=== PATIENT | female | born 1960 | race Caucasian/White ===

== ENCOUNTER 2016-04-11 09:16 | Emergency (ER) | payer BC ==
[2016-04-11 09:40] LABS: Bilirubin Negative (Negative); Blood, Urine Negative (Negative); Clarity Clear (Clear); Glucose, Urine (Dipstick) Negative (Negative); Leukocyte Negative (Negative); Nitrite Negative (Negative); Protein, Urine (Dipstick) Negative (Neg-Trace); Urobilinogen 0.2 mg/dL (0.2-1.0); pH, Urine 8.5 (5.0-9.0)
[2016-04-11 10:11] LABS: #Basophils 0.1 thou/uL (0.0-0.2); #Eosinphils 0.2 thou/uL (0.0-0.7); #Lymphocytes 2.5 thou/uL (1.20-3.40); #Monocytes 0.6 thou/uL (0.11-0.59); #Neutrophils 4.1 thou/uL (1.40-6.50); %Basophils 1.4 % (0.0-1.0); %Eosinophils 2.5 % (0.0-10.0); %Monocytes 8.1 % (0.0-10.0); Hemoglobin 14.5 g/dL (12.0-16.0); Mean Corpuscular Hemoglobin 30.8 pg (27.0-31.0); Mean Corpuscular Volume 90.6 fl (81.0-99.0); Mean Platelet Volume 7.9 fL (7.4-10.4); Platelet Count 291 thou/uL (130-400); RBC Distribution Width 12.3 % (11.5-14.5); Red Blood Cell (RBC) Count 4.72 mill/uL (4.20-5.40); White Blood Cell (WBC) Count 7.5 thou/uL (4.8-10.8)
[2016-04-11 10:24] LABS: ALT (SGPT) 10 U/L (0-55); AST (SGOT) 16 U/L (5-34); Albumin 3.9 g/dL (3.5-5.0); Alkaline Phosphatase 65 U/L (40-150); Anion Gap 18 mmol/L (10-20); BUN (Urea Nitrogen) 6 mg/dL (9.8-20.1); Bilirubin, Total 0.3 mg/dL (0.2-1.2); Calc. Creatinine Clearance 0 mL/min (70-130); Calcium 9.5 mg/dL (7.8-10.44); Carbon Dioxide 26 mmol/L (22-29); Chloride 102 mmol/L (98-107); Estimated GFR-MDRD 81; Globulin 2.6 g/dL (2.4-3.5); Glucose 93 mg/dL (70-105); Potassium 4.8 mmol/L (3.5-5.1); Protein, Total 6.5 g/dL (6.0-8.3); Sodium 141 mmol/L (136-145)
--- NOTE | 2016-04-11 11:55 | ERRECORD ---
[facility] EMERGENCY RECORD HPI ABDOMINAL PAIN (09:43 SHAN) CHIEF COMPLAINTS: Patient presents for evaluation of abdominal pain, Patient presents for evaluation of more in the bladder area, started this morning. HISTORIAN: History provided by patient, History provided by patient's spouse. QUALITY: Pain is sharp in nature. SEVERITY: Maximum severity of symptoms moderate, Currently symptoms are moderate. ASSOCIATED WITH FEMALE: No associated symptoms. RELIEVED BY: Patient's condition relieved by nothing. EXACERBATED BY: Patient's condition exacerbated by nothing. ROS (09:44 SHAN) CONSTITUTIONAL: Negative constitutional review of systems, Historian denies chills, denies fever. EYES: Negative eye review of systems. ENT: Negative ears, nose, throat review of systems. CARDIOVASCULAR: Negative cardiovascular review of systems, Historian denies chest pain, denies palpitations. RESPIRATORY: Negative respiratory review of systems, Historian denies cough, denies shortness of breath. GI: Negative gastrointestinal review of systems, Historian admits abdominal pain (some diffuse but more in the lower mid abdomen/pelvis), Historian denies constipation, Historian denies diarrhea. MUSCULOSKELETAL: Negative musculoskeletal review of systems. SKIN: Negative skin review of systems. NEUROLOGIC: Negative neurologic review of systems. ENDOCRINE: Negative endocrine review of systems. HEMO/LYMPHATIC: Normal hematologic/lymphatic system review. PSYCHIATRIC: Negative psychiatric review of systems. NOTES: All other ROS is negative except as listed in HPI. PAST MEDICAL HISTORY MEDICAL HISTORY: Flu vaccine up to date, Pneumococcal vaccine not up to date, Past medical history includes pulmonary disease, chronic obstructive pulmonary disease. (09:26 SFRE) FEMALE SURGICAL HISTORY: Surgical history of hysterectomy, Surgical history of tonsillectomy. (09:26 SFRE) PSYCHIATRIC HISTORY: No previous psychiatric history. (09:26 SFRE) SOCIAL HISTORY: Patient denies alcohol use, Patient denies drug use, Patient has no smoking history. (09:26 SFRE) NOTES: I have reviewed and agree with the PMH/PSxH/FamHx/SocHx obtained by the nurse. (09:44 SHAN) KNOWN ALLERGIES &a-1R&a+25V*p+0X*h4481K*c202B*c15G*c2P*p-0X&a-25V&a+1R Name: Loreto Worthy : 1960 F56 MedRec: [id number] AcctNum: [id number] Prepared: SunApr 11, 2016 16:32 by Interface Page 1 of 3 pMD [facility] EMERGENCY RECORD codeine sulfate CURRENT MEDICATIONS No recorded medications VITAL SIGNS (09:22 SFRE) VITAL SIGNS: BP: 143/86, Pulse: 70, Resp: 18, Temp: 98.1 (Tympanic), Pain: 10 (Sharp), O2 sat: 98 on Room Air, Time: 04/11/2016 09:22. PHYSICAL EXAM (09:44 SHAN) CONSTITUTIONAL: Vital signs reviewed, Patient appears non toxic, Patient alert and oriented to person, place and time, Pt is in no apparent distress. HEAD: Head exam included findings of head atraumatic, normocephalic. EYES: Eye exam included findings of eyelids normal to inspection, Pupils equally round and reactive to light, Extraocular muscles intact. ENT: ENT exam normal, Nose exam normal, no nasal deformity, no bleeding from nares, Pharynx exam normal, Mouth exam normal, mucous membranes moist. NECK: Neck exam included findings of normal range of motion, Trachea midline. RESPIRATORY CHEST: Respiratory and chest exam normal, Breath sounds clear, No wheezing, No rales, Chest exam included findings of chest movement symmetrical, Chest expansion equal. CARDIOVASCULAR: Cardiovascular assessment normal, Cardiovascular exam included findings of heart rate regular rate and rhythm, Heart sounds normal. ABDOMEN FEMALE: Abdominal exam included findings of abdomen tenderness in the low suprapubic central area, Bowel sounds normal, no mass, no pulsatile masses, no peritoneal signs. BACK: Back exam included findings of normal inspection, range of motion normal, no costovertebral angle tenderness. UPPER EXTREMITY: Upper extremity exam included findings of inspection normal, Range of motion normal. LOWER EXTREMITY: Lower extremity exam included findings of inspection normal, Range of motion normal. NEURO: Neuro exam findings include patient oriented to person, place and time, Speech normal, no focal motor deficits, no focal sensory deficits. SKIN: Skin exam included findings of skin warm, dry, and normal in color. LYMPHATIC: Lymphatic exam normal. PSYCHIATRIC: Psychiatric exam included findings of patient oriented to person place and time, Normal affect. DOCTOR NOTES (10:27 SHAN) TEXT: Urine and labs good; abdomen seems a little less &a-1R&a+25V*p+0X*s7750W*c202B*c15G*c2P*p-0X&a-25V&a+1R Name: Loreto Worthy : 1960 F56 MedRec: [id number] AcctNum: [id number] Prepared: SunApr 11, 2016 16:32 by Interface Page 2 of 3 pMD [facility] EMERGENCY RECORD painful; no rebound. Suspect is a uti with clear urine; explained that it is difficult to be certain; but with neg wbc and crp; and abdomen with no other clear findings believe it is safe to treat this as an atypical presentation of a common problem. Patient was advised to return if there is worsening for further evaluation. Appears to understand and concurs. DATA REVIEWED: Lab data reviewed. PROBLEM LIST No recorded problems DIAGNOSIS (10:29 KARSON) FINAL: PRIMARY: DYSURIA, ADDITIONAL: UTI. PRESCRIPTION Bactrim DS: TABLET : 800 mg-160 mg : ORAL : Quantity: 1 Unit: tab(s) Route: ORAL Schedule: 2 times a day (before meals) Dispense: 20 Unit: tab(s) May substitute. Refills: No Refills . (10:30 KARSON) NOTES: No Refills. (10:30 KARSON) Pyridium: TABLET : 200 mg : ORAL : Quantity: 1 Unit: tab(s) Route: ORAL Schedule: 3 times a day Dispense: 9 Unit: tab(s) May substitute. Refills: No Refills . (10:31 KARSON) NOTES: No Refills. (10:31 KARSON) DISPOSITION PATIENT: Disposition Type: Discharge, Disposition: *Discharge Home. (10:29 KARSON) Patient left the department. (11:49 MARIANNA) Ayala: MARIANNA=RUFINO Fernández, Ester TY=MD Norris, Zachary &a-1R&a+25V*p+0X*t7225H*c202B*c15G*c2P*p-0X&a-25V&a+1R Name: Loreto Worthy : 1960 F56 MedRec: [id number] AcctNum: [id number] Prepared: Tue Apr 11, 2016 16:32 by Interface Page 3 of 3 pMD MTDD
--- NOTE | 2016-04-11 12:02 | PICIS ---
[facility] EMERGENCY RECORD TRIAGE (SunApr 11, 2016 09:24 SFRE) TRIAGE NOTES: SUPRAPUBIC PAIN, PAINFUL URINATION. (SunApr 11, 2016 09:24 SFRE) PATIENT: NAME: Loreto Worthy, AGE: 56, GENDER: female, : Sun1960, TIME OF GREET: SunApr 11, 2016 09:16, PREFERRED LANGUAGE: Beninese, ETHNICITY: Not or , ECODE BILLING MAP: [facility], SSN: [id number], Zip Code: [address], KG WEIGHT: 46.72, PHONE: , , , PERSON ID: [id number], PCP: MD Lomeli Olayemi. (SunApr 11, 2016 09:24 SFRE) COMPLAINT: STOMACH PAIN. (SunApr 11, 2016 09:24 SFRE) ADMISSION: URGENCY: 3 Urgent, ADMISSION SOURCE: Home, TRANSPORT: Walk-in, BED: ED -03. (SunApr 11, 2016 09:24 SFRE) ASSESSMENT: Assessment: holding on to abd dramatically moaning and groaning in pain, Symptoms began 04/11/2016 0430. (09:43 SFRE) PAIN: Patient complains of pain described as, sharp, shooting, on a scale 0-10 patient rates pain as 10, Location suprapubic radiating to upper abd, Pain is constant, Onset was 0430. (09:44 SFRE) IMMUNIZATIONS: Flu vaccine up to date. (09:26 SFRE) SIRS SCORING: Heart Rate 55-109 (0), Temp range 96.8-101.1 (0), respiratory rate 12-24 (0), Mental Status altered: no (0). (09:26 SFRE) TRIAGE SCREENING: Patient denies suicidal ideation, Patient denies presence of domestic violence. (09:44 SFRE) PROVIDERS: TRIAGE NURSE: Ester Fernández RN. (SunApr 11, 2016 09:24 SFRE) VITAL SIGNS: BP 143/86, Pulse 70, Resp 18, Temp 98.1, (Tympanic), Pain 10, (Sharp), O2 Sat 98, on Room Air, Time 04/11/2016 09:22. (09:22 SFRE) KNOWN ALLERGIES codeine sulfate CURRENT MEDICATIONS No recorded medications VITAL SIGNS (09: SFRE) VITAL SIGNS: BP: 143/86, Pulse: 70, Resp: 18, Temp: 98.1 (Tympanic), Pain: 10 (Sharp), O2 sat: 98 on Room Air, Time: 04/11/2016 09:22. NURSING ASSESSMENT: GENITOURINARY (09:29 SFRE) CONSTITUTIONAL: Patient arrives ambulatory, Gait steady, History obtained from patient, Patient appears, in distress due to pain, Patient cooperative, Patient alert, Oriented to person, place and time, Skin warm, Skin dry, Skin normal in color, Mucous membranes pink, Mucous membranes moist, Patient is well-groomed, Patient complains of abd pain. &a-1R&a+25V*p+0X*u9990M*c202B*c15G*c2P*p-0X&a-25V&a+1R Name: Loreto Worthy : 1960 F56 MedRec: [id number] AcctNum: [id number] Prepared: reynaldo Apr 11, 2016 16:38 by Interface Page [address] [facility] EMERGENCY RECORD PAIN FEMALE: Pain exacerbated by, urination, Nothing has been tried to alleviate the pain, sharp pain, shooting pain, to the suprapubic region, constant, on a scale 0-10 patient rates pain as 10. GENITOURINARY FEMALE: Associated with urinary complaints, burning, dysuria. ABDOMEN: Abdomen assessment findings include abdomen symmetrical, Abdomen soft, tender, suprapubic, Bowel sound normal, no associated nausea, no associated vomiting, no associated diarrhea, no associated constipation. SAFETY: Side rails up, Cart/Stretcher in lowest position, Family at bedside, Call light within reach, Hospital ID band on. NURSING PROCEDURE: DISCHARGE NOTE (: SFRE) DISCHARGE: Patient discharged to home, ambulating without assistance, family driving, accompanied by //partner, Summary of Care printed/ provided, Patient requested and was provided an electronic copy of Discharge Instructions, Discharge instructions given to patient, Simple or moderate discharge teaching performed, by RUFINO ALEXANDRA, F/U WITH PCP. RX DIRECTED. RETURN TO ED NEEDED FOR NEW/CONCERNING OR WORSENING SYMPTOMS., Prescriptions given and instructions on side effects given, Name of prescription(s) given: BACTRIM, PYRIDIUM, Above person(s) verbalized understanding of discharge instructions and follow-up care. ORDER DETAILS Order Name: CBC with Differential, Status: Active, Time: 09:42 04/11/2016, User: KARSON, - Ordered for: MD Pisano Stanley, - Entered by: MD Pisano Stanley - Tue Apr 11, 2016 09:42, - Quantity: 1, Order Name: Comprehensive Metabolic Panel, Status: Active, Time: 09:42 04/11/2016, User: KARSON, - Ordered for: MD Pisano Stanley, - Entered by: MD Pisano Stanley - Tue Apr 11, 2016 09:42, - Quantity: 1, Order Name: CRP (Inflamatory), Status: Active, Time: 09:47 04/11/2016, User: KARSON, - Ordered for: MD Pisano Stanley, - Entered by: MD Pisano Stanley - Tue Apr 11, 2016 09:47, - Quantity: 1, Order Name: Culture, Urine, Status: Active, Time: 09:31 04/11/2016, User: KARSON, - Ordered for: MD Pisano Stanley, - Entered by: MD Pisano Stanley - Tue Apr 11, 2016 09:31, - Quantity: 1, Order Name: Urinalysis w/ Rflx Microscopic, Status: Active, Time: 09:31 04/11/2016, User: KARSON, &a-1R&a+25V*p+0X*l4075K*c202B*c15G*c2P*p-0X&a-25V&a+1R Name: Loreto Worthy : 1960 F56 MedRec: [id number] AcctNum: [id number] Prepared: SunApr 11, 2016 16:38 by Interface Page [address] [facility] EMERGENCY RECORD - Ordered for: MD Pisano Stanley, - Entered by: MD Pisano Stanley - Tue Apr 11, 2016 09:31, - Quantity: 1. HPI ABDOMINAL PAIN (09:43 SHAN) CHIEF COMPLAINTS: Patient presents for evaluation of abdominal pain, Patient presents for evaluation of more in the bladder area, started this morning. HISTORIAN: History provided by patient, History provided by patient's spouse. QUALITY: Pain is sharp in nature. SEVERITY: Maximum severity of symptoms moderate, Currently symptoms are moderate. ASSOCIATED WITH FEMALE: No associated symptoms. RELIEVED BY: Patient's condition relieved by nothing. EXACERBATED BY: Patient's condition exacerbated by nothing. ROS (09:44 SHAN) CONSTITUTIONAL: Negative constitutional review of systems, Historian denies chills, denies fever. EYES: Negative eye review of systems. ENT: Negative ears, nose, throat review of systems. CARDIOVASCULAR: Negative cardiovascular review of systems, Historian denies chest pain, denies palpitations. RESPIRATORY: Negative respiratory review of systems, Historian denies cough, denies shortness of breath. GI: Negative gastrointestinal review of systems, Historian admits abdominal pain (some diffuse but more in the lower mid abdomen/pelvis), Historian denies constipation, Historian denies diarrhea. MUSCULOSKELETAL: Negative musculoskeletal review of systems. SKIN: Negative skin review of systems. NEUROLOGIC: Negative neurologic review of systems. ENDOCRINE: Negative endocrine review of systems. HEMO/LYMPHATIC: Normal hematologic/lymphatic system review. PSYCHIATRIC: Negative psychiatric review of systems. NOTES: All other ROS is negative except as listed in HPI. PAST MEDICAL HISTORY MEDICAL HISTORY: Flu vaccine up to date, Pneumococcal vaccine not up to date, Past medical history includes pulmonary disease, chronic obstructive pulmonary disease. (09:26 SFRE) FEMALE SURGICAL HISTORY: Surgical history of hysterectomy, Surgical history of tonsillectomy. (09:26 SFRE) PSYCHIATRIC HISTORY: No previous psychiatric history. (09:26 SFRE) SOCIAL HISTORY: Patient denies alcohol use, Patient denies drug use, Patient has no smoking history. (09:26 SFRE) &a-1R&a+25V*p+0X*o9263H*c202B*c15G*c2P*p-0X&a-25V&a+1R Name: Loreto Worthy : 1960 F56 MedRec: [id number] AcctNum: [id number] Prepared: Dillon Apr 11, 2016 16:38 by Interface Page [address] [facility] EMERGENCY RECORD NOTES: I have reviewed and agree with the PMH/PSxH/FamHx/SocHx obtained by the nurse. (09:44 SHAN) PHYSICAL EXAM (09:44 SHAN) CONSTITUTIONAL: Vital signs reviewed, Patient appears non toxic, Patient alert and oriented to person, place and time, Pt is in no apparent distress. HEAD: Head exam included findings of head atraumatic, normocephalic. EYES: Eye exam included findings of eyelids normal to inspection, Pupils equally round and reactive to light, Extraocular muscles intact. ENT: ENT exam normal, Nose exam normal, no nasal deformity, no bleeding from nares, Pharynx exam normal, Mouth exam normal, mucous membranes moist. NECK: Neck exam included findings of normal range of motion, Trachea midline. RESPIRATORY CHEST: Respiratory and chest exam normal, Breath sounds clear, No wheezing, No rales, Chest exam included findings of chest movement symmetrical, Chest expansion equal. CARDIOVASCULAR: Cardiovascular assessment normal, Cardiovascular exam included findings of heart rate regular rate and rhythm, Heart sounds normal. ABDOMEN FEMALE: Abdominal exam included findings of abdomen tenderness in the low suprapubic central area, Bowel sounds normal, no mass, no pulsatile masses, no peritoneal signs. BACK: Back exam included findings of normal inspection, range of motion normal, no costovertebral angle tenderness. UPPER EXTREMITY: Upper extremity exam included findings of inspection normal, Range of motion normal. LOWER EXTREMITY: Lower extremity exam included findings of inspection normal, Range of motion normal. NEURO: Neuro exam findings include patient oriented to person, place and time, Speech normal, no focal motor deficits, no focal sensory deficits. SKIN: Skin exam included findings of skin warm, dry, and normal in color. LYMPHATIC: Lymphatic exam normal. PSYCHIATRIC: Psychiatric exam included findings of patient oriented to person place and time, Normal affect. EVENTS TRANSFER: Triage to Emergency Main ED -03. (SunApr 11, 2016 09:24 SFRE) Emergency Main ED -03 to Holding. (11:38 SFRE) Removed from Emergency Holding. (11:49 SFRE) DOCTOR NOTES (10:27 SHAN) TEXT: Urine and labs good; abdomen seems a little less painful; no rebound. Suspect is a uti with clear urine; explained &a-1R&a+25V*p+0X*s8611U*c202B*c15G*c2P*p-0X&a-25V&a+1R Name: Loreto Worthy : 1960 F56 MedRec: [id number] AcctNum: [id number] Prepared: Dillon Apr 11, 2016 16:38 by Interface Page [address] [facility] EMERGENCY RECORD that it is difficult to be certain; but with neg wbc and crp; and abdomen with no other clear findings believe it is safe to treat this as an atypical presentation of a common problem. Patient was advised to return if there is worsening for further evaluation. Appears to understand and concurs. DATA REVIEWED: Lab data reviewed. PROBLEM LIST No recorded problems DIAGNOSIS (: SHAN) FINAL: PRIMARY: DYSURIA, ADDITIONAL: UTI. DISPOSITION PATIENT: Disposition Type: Discharge, Disposition: *Discharge Home. (: SHAN) Patient left the department. (11:49 SFRE) INSTRUCTION (:33 SHAN) DISCHARGE: URINARY TRACT INFECTION CYSTITIS FEMALE ADULT, ABDOMINAL PAIN, UNKNOWN CAUSE, (FEMALE). FOLLOWUP: [facility], [address] [place] [address], . SPECIAL: 1. antibiotic two at first and one twice a day until gone 2. take the pyridium to numb up the urine; three times a day for 3 days; it usually will turn the urine orange 3. drink extra fluids 4. return if any problems 5. understand that the history and exam are most compatible with a urinary infection but the labs were not typical; if symptoms worsen; further evaluation will be needed. PRESCRIPTION Bactrim DS: TABLET : 800 mg-160 mg : ORAL : Quantity: 1 Unit: tab(s) Route: ORAL Schedule: 2 times a day (before meals) Dispense: 20 Unit: tab(s) May substitute. Refills: No Refills . (10:30 SHAN) NOTES: No Refills. (10:30 SHAN) Pyridium: TABLET : 200 mg : ORAL : Quantity: 1 Unit: tab(s) Route: ORAL Schedule: 3 times a day Dispense: 9 Unit: tab(s) May substitute. Refills: No Refills . (10:31 SHAN) NOTES: No Refills. (10:31 SHAN) IMAGING *DISCHARGE INSTRUCTIONS RECEIPT: Image captured from scanner. (12:59 SFRE) Page 2 added. Image captured from scanner. (12:59 SFRE) *SUPPLY CHARGE SHEET: Image captured from scanner. (13:00 SFRE) &a-1R&a+25V*p+0X*u8889V*c202B*c15G*c2P*p-0X&a-25V&a+1R Name: Loreto Worthy : 1960 F56 MedRec: [id number] AcctNum: [id number] Prepared: SunApr 11, 2016 16:38 by Interface Page [address] [facility] EMERGENCY RECORD ADMIN (16:27 SHAN) DIGITAL SIGNATURE: MD Pisano Stanley. RESULTS LABORATORY: Urinalysis w/ Rflx Microscopic Collection DT: SunApr 11, 2016 09:39, Color Yellow , Range (Yellow), Clarity Clear , Range (Clear), Specific [place], Urine 1.020 , Range (1.005-1.030), pH, Urine 8.5 , Range (5.0-9.0), Leukocyte Negative , Range (Negative), Nitrite Negative , Range (Negative), Protein, Urine (Dipstick) Negative mg/dL, Range (Neg-Trace), Glucose, Urine (Dipstick) Negative mg/dL, Range (Negative), Ketone, Urine Negative mg/dL, Range (Negative), Urobilinogen 0.2 mg/dL, Range (0.2-1.0), Bilirubin Negative , Range (Negative), Blood, Urine Negative , Range (Negative). (09:46 SHAN) CRP (Inflammatory) Collection DT: SunApr 11, 2016 10:01, CRP (Inflammatory) Less than 0.50 mg/dL, Range (= or < 0.5). (10:25 SHAN) CBC with Differential Collection DT: SunApr 11, 2016 10:01, White Blood Cell (WBC) Count 7.5 thou/uL, Range (4.8-10.8), Red Blood Cell (RBC) Count 4.72 mill/uL, Range (4.20-5.40), Hemoglobin 14.5 g/dL, Range (12.0-16.0), Hematocrit 42.7 %, Range (36.0-47.0), Mean Corpuscular Volume 90.6 fl, Range (81.0-99.0), Mean Corpuscular Hemoglobin 30.8 pg, Range (27.0-31.0), Mean Corpuscular HGB CONC 34.0 g/dL, Range (32.0-36.0), RBC Distribution Width 12.3 %, Range (11.5-14.5), Platelet Count 291 thou/uL, Range (130-400), Mean Platelet Volume 7.9 fL, Range (7.4-10.4), %Neutrophils 55.0 %, Range (42.0-75.0), %Lymphocytes 33.0 %, Range (21.0-51.0), %Monocytes 8.1 %, Range (0.0-10.0), %Eosinophils 2.5 %, Range (0.0-10.0), *%Basophils 1.4 - H %, Range (0.0-1.0), #Neutrophils 4.1 thou/uL, Range (1.40-6.50), #Lymphocytes 2.5 thou/uL, Range (1.20-3.40), *#Monocytes 0.6 - H thou/uL, Range (0.11-0.59), #Eosinphils 0.2 thou/uL, Range (0.0-0.7), #Basophils 0.1 thou/uL, Range (0.0-0.2). (10:25 SHAN) Comprehensive Metabolic Panel Collection DT: SunApr 11, 2016 10:01, Sodium 141 mmol/L, Range (136-145), Potassium 4.8 mmol/L, Range (3.5-5.1), Chloride 102 mmol/L, Range (98-107), Carbon Dioxide 26 mmol/L, Range (22-29), Anion Gap 18 mmol/L, Range (10-20), *BUN (Urea Nitrogen) 6 - L mg/dL, Range (9.8-20.1), &a-1R&a+25V*p+0X*p7657R*c202B*c15G*c2P*p-0X&a-25V&a+1R Name: Loreto Worthy : 1960 F56 MedRec: [id number] AcctNum: [id number] Prepared: SunApr 11, 2016 16:38 by Interface Page [address] [facility] EMERGENCY RECORD Creatinine 0.74 mg/dL, Range (0.6-1.1), Estimated GFR-MDRD 81 , Reference Range for Estimated GFR: Greater than 90, mL/min/1.73 m2 NOTE: The MDRD equation has not been validated for use, with the elderly (over 70 years of age), women, patients with, serious comorbid condition or persons with extremes of body size, muscle, mass, or nutritional status. , Glucose 93 mg/dL, Range (70-105), Calcium 9.5 mg/dL, Range (7.8-10.44), Bilirubin, Total 0.3 mg/dL, Range (0.2-1.2), Protein, Total 6.5 g/dL, Range (6.0-8.3), NOTE: Plasma values are generally 0.3 to 0.5 g/dL higher than serum values, due to the presence of fibrinogen. , Albumin 3.9 g/dL, Range (3.5-5.0), Globulin 2.6 g/dL, Range (2.4-3.5), Alb/Glob Ratio 1.5 g/dL, Range (1.2-2.2), Alkaline Phosphatase 65 U/L, Range (40-150), AST (SGOT) 16 U/L, Range (5-34), ALT (SGPT) 10 U/L, Range (0-55). (10:30 SFRE) Ayala: MARIANNA=RUFINO Fernández, Ester TY=MD Norris, Zachary &a-1R&a+25V*p+0X*b3604E*c202B*c15G*c2P*p-0X&a-25V&a+1R Name: Loreto Worthy DOB: 1960 F56 MedRec: [id number] AcctNum: [id number] Prepared: SunApr 11, 2016 16:38 by Interface Page 7 of 7 pMD MTDD
== END 2016-04-11 11:17 | disposition home or self-care (01) ==
LOC: MADERS 09:16
DX: N39.0 Urinary tract infection, site not specified (principal); J44.9 Chronic obstructive pulmonary disease, unspecified
CPT/HCPCS: 36415; 80053; 81003; 85025; 86140; 87086; 99284

== ENCOUNTER 2018-03-19 08:58 | Emergency (ER) | payer BC ==
[2018-03-19] MEDS ORDERED: Azithromycin 250 MG TAB ONE (09:37)
[2018-03-19 09:42] LABS: #Eosinphils 0.2 thou/uL (0.0-0.7); #Lymphocytes 1.6 thou/uL (1.20-3.40); #Monocytes 0.4 thou/uL (0.11-0.59); %Basophils 0.3 % (0.0-1.0); %Eosinophils 2.1 % (0.0-10.0); %Lymphocytes 19.5 % (21.0-51.0); %Neutrophils 73.1 % (42.0-75.0); Hemoglobin 14.9 g/dL (12.0-16.0); Mean Corpuscular HGB CONC 32.4 g/dL (32.0-36.0); Mean Corpuscular Volume 92.5 fL (78.0-98.0); Mean Platelet Volume 8.3 fL (7.4-10.4); Platelet Count 246 thou/uL (130-400); RBC Distribution Width 12.9 % (11.5-14.5); Red Blood Cell (RBC) Count 4.97 mill/uL (4.20-5.40); White Blood Cell (WBC) Count 8.2 thou/uL (4.8-10.8)
[2018-03-19] MEDS ORDERED: Ipratropium Bromide 2.5 ml Neb ONE (09:47)
[2018-03-19] MEDS ORDERED: Albuterol Sulfate 2.5 mg/0.5 ml Neb ONE (09:47)
--- NOTE | 2018-03-19 09:52 | RAD ---
PORTABLE CHEST 1 VIEW: Date: 03/19/18 Time: 0930 hours HISTORY: Dyspnea. FINDINGS: The heart size is normal. The lungs are expanded without focal areas of consolidation, pneumothorax, or pleural effusions. Scattered tiny radiopaque densities likely due to old granulomatous disease are stable since 01/06/15. IMPRESSION: No acute process. POS: [facility]
[2018-03-19 10:10] LABS: ALT (SGPT) 8 U/L (8-55); AST (SGOT) 15 U/L (5-34); Albumin 3.8 g/dL (3.5-5.0); Alkaline Phosphatase 86 U/L (40-150); Anion Gap 14 mmol/L (10-20); BUN (Urea Nitrogen) 7 mg/dL (9.8-20.1); Bilirubin, Total 0.2 mg/dL (0.2-1.2); Calc. Creatinine Clearance 0 mL/min (70-130); Calcium 8.9 mg/dL (7.8-10.44); Carbon Dioxide 23 mmol/L (22-29); Chloride 107 mmol/L (98-107); Estimated GFR-MDRD 87; Globulin 3.2 g/dL (2.4-3.5); Glucose 114 mg/dL (70-105); Potassium 4.1 mmol/L (3.5-5.1); Sodium 140 mmol/L (136-145)
== END 2018-03-19 12:50 | disposition short-term general hospital (02) ==
LOC: MADERS 08:58
DX: J44.1 Chronic obstructive pulmonary disease with (acute) exacerbation (principal); F17.210 Nicotine dependence, cigarettes, uncomplicated; Z79.899 Other long term (current) drug therapy; Z79.82 Long term (current) use of aspirin; Z79.51 Long term (current) use of inhaled steroids
CPT/HCPCS: 36415; 71045; 80053; 83880; 84484; 85025; 93005; J7611

== ENCOUNTER 2020-07-02 09:29 | Outpatient (CLI) | payer BC ==
[2020-07-02 12:58] LABS: #Basophils 0.1 thou/uL (0.0-0.2); #Eosinphils 0.2 thou/uL (0.0-0.7); #Lymphocytes 2.5 thou/uL (1.20-3.40); #Monocytes 0.7 thou/uL (0.11-0.59); #Neutrophils 6.4 thou/uL (1.40-6.50); %Basophils 0.9 % (0.0-1.0); %Eosinophils 2.4 % (0.0-10.0); %Lymphocytes 24.7 % (21.0-51.0); %Monocytes 7.3 % (0.0-10.0); %Neutrophils 64.7 % (42.0-75.0); Hemoglobin 14.5 g/dL (12.0-16.0); Mean Corpuscular HGB CONC 30.2 g/dL (32.0-36.0); Mean Corpuscular Hemoglobin 28.8 pg (27.0-31.0); Mean Corpuscular Volume 95.3 fL (78.0-98.0); Mean Platelet Volume 7.2 fL (7.4-10.4); Platelet Count 312 thou/uL (130-400); RBC Distribution Width 13.6 % (11.5-14.5); Red Blood Cell (RBC) Count 5.03 mill/uL (4.20-5.40); White Blood Cell (WBC) Count 9.9 thou/uL (4.8-10.8)
[2020-07-02 13:11] LABS: ALT (SGPT) 10 U/L (8-55); AST (SGOT) 19 U/L (5-34); Albumin 4.1 g/dL (3.4-4.8); Alkaline Phosphatase 65 U/L (40-110); Anion Gap 17 mmol/L (10-20); BUN (Urea Nitrogen) 14 mg/dL (9.8-20.1); Bilirubin, Total 0.3 mg/dL (0.2-1.2); Calc. Creatinine Clearance 0 mL/min (70-130); Calcium 9.7 mg/dL (7.8-10.44); Carbon Dioxide 25 mmol/L (23-31); Cardiac Risk 5.1 (Less than 4.5); Chloride 103 mmol/L (98-107); Cholesterol 246 mg/dl (< 200 Desired); Globulin 2.7 g/dL (2.4-3.5); Glucose 90 mg/dL (80-115); HDL Cholesterol 48 mg/dL (>60 Neg Risk); LDL Cholesterol, Calculated 180 mg/dL; Potassium 4.9 mmol/L (3.5-5.1); Protein, Total 6.8 g/dL (5.8-8.1); Sodium 140 mmol/L (136-145); Triglycerides 92 mg/dL (Less than 150)
[2020-07-02 13:55] LABS: Thyroid Stimulating Hormone 0.4317 uIU/mL (0.35-4.94)
[2020-07-02 16:58] LABS: Hemoglobin A1c 5.4 % (4.0-6.0)
[2020-07-02 17:20] LABS: Vitamin D, 25 Hydroxy 45.6 ng/ml (> 30.0)
== END 2020-07-02 09:30 | disposition home or self-care (01) ==
LOC: MADRAD 09:29
PROVIDERS: ATTEND Family Medicine
DX: J44.9 Chronic obstructive pulmonary disease, unspecified (principal); F17.200 Nicotine dependence, unspecified, uncomplicated; M54.5 Low back pain; M47.816 Spondylosis without myelopathy or radiculopathy, lumbar region
CPT/HCPCS: 36415; 71046; 72100; 80053; 80061; 82306; 83036; 84443; 85025

== ENCOUNTER 2020-08-10 06:10 | Emergency (ER) | payer OTHER ==
[2020-08-10 06:53] LABS: Bilirubin Negative (Negative); Blood, Urine Negative (Negative); Clarity Clear (Clear); Glucose, Urine (Dipstick) Negative (Negative); Ketone, Urine Negative (Negative); Leukocyte Negative (Negative); Nitrite Negative (Negative); Protein, Urine (Dipstick) Negative (Neg-Trace); Specific Gravity, Urine 1.015 (1.005-1.030); Urobilinogen 0.2 mg/dL (Less than 2); pH, Urine 5.5 (5.0-9.0)
[2020-08-10 07:01] LABS: Hemoglobin 14.1 g/dL (12.0-16.0); Mean Corpuscular HGB CONC 31.1 g/dL (32.0-36.0); Mean Corpuscular Hemoglobin 28.8 pg (27.0-31.0); Mean Corpuscular Volume 92.9 fL (78.0-98.0); Mean Platelet Volume 8.6 fL (7.4-10.4); Platelet Count 316 thou/uL (130-400); RBC Distribution Width 13.9 % (11.5-14.5); Red Blood Cell (RBC) Count 4.88 mill/uL (4.20-5.40); White Blood Cell (WBC) Count 20.4 thou/uL (4.8-10.8)
[2020-08-10 07:02] LABS: ALT (SGPT) 15 U/L (8-55); AST (SGOT) 17 U/L (5-34); Albumin 3.9 g/dL (3.4-4.8); Alkaline Phosphatase 56 U/L (40-110); Amphetamine Not Detected (NotDetected); Anion Gap 15 mmol/L (10-20); BUN (Urea Nitrogen) 19 mg/dL (9.8-20.1); Barbiturates Screen Detected (NotDetected); Benzodiazepine Screen Not Detected (NotDetected); Bilirubin, Total 0.2 mg/dL (0.2-1.2); CK (CPK) 64 U/L (29-168); Calc. Creatinine Clearance 0 mL/min (70-130); Calcium 9.3 mg/dL (7.8-10.44); Carbon Dioxide 23 mmol/L (23-31); Chloride 107 mmol/L (98-107); Cocaine Metabolite Screen Not Detected (NotDetected); Glucose 90 mg/dL (80-115); Methadone Not Detected (NotDetected); Methamphetamine Not Detected (NotDetected); Opiate Screen Not Detected (NotDetected); Oxycodone Screen Not Detected (NotDetected); Phencyclidine (PCP) Not Detected (NotDetected); Potassium 3.9 mmol/L (3.5-5.1); Protein, Total 6.9 g/dL (5.8-8.1); Sodium 141 mmol/L (136-145); THC/Cannabinoid Screen Not Detected (NotDetected); Tricyclic Screen Not Detected (NotDetected)
[2020-08-10 07:03] LABS: Medtox Control Line Valid? VALID (VALID)
[2020-08-10 07:05] LABS: CKMB 2.2 ng/mL (0-6.6)
[2020-08-10 07:12] LABS: Band 1 % (5-11); Lymphocytes 19 % (21-51); MDiff Complete? YES; Manual Diff?? YES; Monocytes 10 % (0-10); Neutrophil 70 % (42-75)
[2020-08-10 07:13] LABS: Anisocytosis SLIGHT = 6-15 cells (100X) (0-5/hpf); Platelet Morphology Comment Appears Adequate
== END 2020-08-10 08:00 | disposition home or self-care (01) ==
LOC: MADERS 06:10
DX: R07.89 Other chest pain (principal); F41.9 Anxiety disorder, unspecified; R00.0 Tachycardia, unspecified; J44.9 Chronic obstructive pulmonary disease, unspecified; Z85.3 Personal history of malignant neoplasm of breast; F17.210 Nicotine dependence, cigarettes, uncomplicated; Z79.82 Long term (current) use of aspirin; Z79.899 Other long term (current) drug therapy
CPT/HCPCS: 71045; 80053; 80306; 81003; 82550; 82553; 83605; 83880; 84484; 85025; 85379; 87040; 93005; 94760

== ENCOUNTER 2021-06-16 15:08 | Outpatient (CLI) | payer OTHER | END 2021-06-16 15:09 | disposition home or self-care (01) | LOC: MADRAD 15:08 | PROVIDERS: ATTEND Family Medicine | DX: J44.9 Chronic obstructive pulmonary disease, unspecified (principal); R05.9 Cough, unspecified; J98.4 Other disorders of lung | CPT/HCPCS: 71046 ==

== ENCOUNTER 2022-11-21 03:26 | Emergency (ER) | payer OTHER ==
[2022-11-21] MEDS ORDERED: Magnesium 2 GM/50 ML BAG (IN WATER) ONE (03:31)
[2022-11-21] MEDS ORDERED: Albuterol 2.5 MG/0.5 ML NEB ONE (03:31)
[2022-11-21 04:37] LABS: Band 2 % (5-11); Burr Cells SLIGHT = 2-5 cells (100X) (0-1/hpf); Hematocrit 42.6 % (36.0-47.0); Hemoglobin 13.5 g/dL (12.0-16.0); Lymphocytes 14 % (21-51); MDiff Complete? YES; Mean Corpuscular HGB CONC 31.8 g/dL (32.0-36.0); Mean Corpuscular Hemoglobin 29.6 pg (27.0-31.0); Mean Corpuscular Volume 93.1 fl (78.0-98.0); Mean Platelet Volume 8.7 fL (7.4-10.4); Monocytes 1 % (0-10); Neutrophil 83 % (42-75); Platelet Adequacy Comment Appears Adequate; Platelet Count 311 10x3/uL (130-400); RBC Distribution Width 13.3 % (11.5-14.5); Red Blood Cell (RBC) Count 4.58 mill/uL (4.20-5.40); White Blood Cell (WBC) Count 21.6 10x3/uL (4.8-10.8)
[2022-11-21 04:39] LABS: ALT (SGPT) 13 U/L (8-55); AST (SGOT) 21 U/L (5-34); Albumin 3.5 g/dL (3.4-4.8); Alkaline Phosphatase 101 U/L (40-110); Anion Gap 18 mmol/L (10-20); BUN (Urea Nitrogen) 14 mg/dL (9.8-20.1); Bilirubin, Total 0.5 mg/dL (0.2-1.2); Calc. Creatinine Clearance 0 mL/min (70-130); Calcium 8.3 mg/dL (7.8-10.44); Carbon Dioxide 20 mmol/L (23-31); Chloride 108 mmol/L (98-107); Estimated GFR 101; Globulin 2.8 g/dL (2.4-3.5); Glucose 174 mg/dL (80-115); Potassium 3.4 mmol/L (3.5-5.1); Protein, Total 6.3 g/dL (5.8-8.1); Sodium 143 mmol/L (136-145)
[2022-11-21 04:44] LABS: Troponin I 0.113 ng/mL (< 0.028)
[2022-11-21] MEDS ORDERED: Aspirin 300 MG Suppository ONE (04:47)
[2022-11-21] MEDS ORDERED: Acetaminophen 650 MG Suppository ONE (04:47)
[2022-11-21] MEDS ORDERED: Acetaminophen 500 MG TAB ONE (05:10)
[2022-11-21] MEDS ORDERED: Aspirin Chewable 81 MG TAB ONE (05:10)
[2022-11-21] MEDS ORDERED: Azithromycin 500 MG VIAL ONE (05:13)
[2022-11-21] MEDS ORDERED: Sodium Chloride 0.9% 250 ML 250 ML ONE (05:13)
[2022-11-21] MEDS ORDERED: cefTRIAXone (ROCEPHIN) 1 GM VIAL ONE (05:13)
[2022-11-21] MEDS ORDERED: Sodium Chloride 0.9% 100 ML ONE (05:13)
[2022-11-21 05:26] LABS: SARS-CoV-2 NAA Rapid Test Not Detected (NotDetected)
== END 2022-11-21 06:33 | disposition short-term general hospital (02) ==
LOC: MADERS 03:26
DX: J44.1 Chronic obstructive pulmonary disease with (acute) exacerbation (principal); J96.00 Acute respiratory failure, unspecified whether with hypoxia or hypercapnia; R79.89 Other specified abnormal findings of blood chemistry; F17.210 Nicotine dependence, cigarettes, uncomplicated; Z79.82 Long term (current) use of aspirin; Z20.822 Contact with and (suspected) exposure to COVID-19
CPT/HCPCS: 80053; 83880; 84484; 85025; 93005; 94644; 96365; 96367; 96372; J0456; J0696; J1650; J3475; J3490; J7050; J7611

== ENCOUNTER 2023-04-17 07:27 | Emergency (ER) | payer MEDICARE ==
[2023-04-17] MEDS ORDERED: Albuterol 2.5 MG (0.5 mL) NEB ONE (07:51)
[2023-04-17] MEDS ORDERED: Aspirin Chewable 81 MG TAB ONE (07:51)
[2023-04-17] MEDS ORDERED: cefTRIAXone (ROCEPHIN) 1 GM VIAL ONE (07:51)
[2023-04-17] MEDS ORDERED: Ipratropium Bromide 2.5 ml Neb ONE (07:51)
[2023-04-17] MEDS ORDERED: Azithromycin 500 MG VIAL ONE (07:51)
[2023-04-17 08:07] LABS: #Basophils 0.1 thou/uL (0.0-0.2); #Eosinphils 0.2 thou/uL (0.0-0.7); #Lymphocytes 1.4 thou/uL (1.20-3.40); #Monocytes 0.8 thou/uL (0.11-0.59); #Neutrophils 11.2 thou/uL (1.40-6.50); %Basophils 0.7 % (0.0-1.0); %Eosinophils 1.2 % (0.0-10.0); %Lymphocytes 10.1 % (21.0-51.0); %Monocytes 5.8 % (0.0-10.0); %Neutrophils 82.2 % (42.0-75.0); Hematocrit 42.7 % (36.0-47.0); Hemoglobin 13.4 g/dL (12.0-16.0); Mean Corpuscular HGB CONC 31.5 g/dL (32.0-36.0); Mean Corpuscular Hemoglobin 29.3 pg (27.0-31.0); Mean Platelet Volume 8.5 fL (7.4-10.4); Platelet Count 283 10x3/uL (130-400); Red Blood Cell (RBC) Count 4.59 mill/uL (4.20-5.40); White Blood Cell (WBC) Count 13.6 10x3/uL (4.8-10.8)
[2023-04-17] MEDS ORDERED: methylPREDNISolone Sod Succ/PF 125 MG/2 ML VIAL ONE (08:10)
[2023-04-17 08:20] LABS: ALT (SGPT) 14 U/L (8-55); AST (SGOT) 22 U/L (5-34); Alkaline Phosphatase 53 U/L (40-110); Anion Gap 15 mmol/L (10-20); BUN (Urea Nitrogen) 14 mg/dL (9.8-20.1); Bilirubin, Total 0.3 mg/dL (0.2-1.2); Calc. Creatinine Clearance 0 mL/min (70-130); Chloride 105 mmol/L (98-107); Estimated GFR 99; Globulin 2.5 g/dL (2.4-3.5); Glucose 89 mg/dL (80-115); Magnesium 1.8 mg/dL (1.6-2.6); Protein, Total 6.5 g/dL (5.8-8.1); Sodium 141 mmol/L (136-145)
[2023-04-17 08:28] LABS: Base Excess-Venous -0.4 mmol/L (-2.0 to 3.0); Bicarbonate (HCO3v) 27.1 mmol/L (22.0-28.0); CO2 Tension (PvCO2) 54.8 mmHg (42.0-51.0); Calcium, Ionized 1.15 mmol/L (1.15-1.33); Chloride 106 mmol/L (98-107); Hemoglobin - Calc 14.6 g/dL (12.0-16.0); Potassium 3.9 mmol/L (3.5-5.1); Sodium 141 mmol/L (138-145); T. Carbon Dioxide 28.8 mmol/L (22.0-28.0); vO2 Saturation-calc 75.3 % (60.0-85.0)
[2023-04-17 08:29] LABS: Carbon Dioxide 25 mmol/L (23-31); Critical Call Chem Troponin I NUR.AW2@0825; Troponin I 0.546 ng/mL (< 0.028)
[2023-04-17 08:50] LABS: SARS-CoV-2 NAA Rapid Test Not Detected (NotDetected)
[2023-04-17] MEDS ORDERED: Sodium Chloride 0.9% 1,000 ML BAG ONE (09:00)
[2023-04-17] MEDS ORDERED: Enoxaparin 40 MG (0.4 mL) SYRINGE ONE (09:37)
== END 2023-04-17 10:16 | disposition short-term general hospital (02) ==
LOC: MADERS 07:27
DX: J44.1 Chronic obstructive pulmonary disease with (acute) exacerbation (principal); R79.89 Other specified abnormal findings of blood chemistry; R00.0 Tachycardia, unspecified; I10 Essential (primary) hypertension; K21.9 Gastro-esophageal reflux disease without esophagitis; F17.210 Nicotine dependence, cigarettes, uncomplicated; Z79.82 Long term (current) use of aspirin; Z79.899 Other long term (current) drug therapy
CPT/HCPCS: 36415; 71045; 80053; 82330; 82803; 83605; 83735; 83880; 84443; 84484; 85025; 85379; 87040; 93005; 94760; 96365; 96367; 96375; J0456; J0696; J1650; J2930; J7050; J7611